=== PATIENT | male | born 1955 | race Caucasian/White ===

== ENCOUNTER 2018-08-11 15:01 | Inpatient (IN) | payer OTHER ==
[~2018-08-11] VITALS: Ht 170.2 cm; Wt 79.4 kg
[2018-08-11 15:10] VITALS: BP 120/62
--- NOTE | 2018-08-11 15:19 | NUR ---
PT TO ER BED 4
--- NOTE | 2018-08-11 15:23 | NUR ---
63 M PT BIB C/O THORACIC BACK PAIN AND FOOT SORE. BACK PAIN ACHING 12/28, DENIES INJURY OR TRAUMA, SINCE SUNDAY. 2 AND HALF BY 3 CM SORE ON BOTTOM OF THE FOOT. PT REPORTS HE SAW A DR 3 WEEKS AGO FOR THE FOOT SORE AND WAS PRESCRIBED COLLAGENASE SANTYL. L FOOT IS RED, SWOLLEN, NO ECCYMOSIS. +PEDAL PULSES, +ROM. ADMITS FEVERS/CHILLS AND VOMITING SINCE YESTERDAY. BED IS DOWN, LOCKED, BED RAIL X 1, ERMD NOTIFIED. [facility]-DIABETES MEDS- CANT REMEMBER THE NAME BUT STATES THEY ARE FOR DIABETES
--- NOTE | 2018-08-11 16:11 | NUR ---
DR VILLEDA AT BEDSIDE
[2018-08-11] MEDS ORDERED: VANCOMYCIN 1,000 MG in DEXTROSE 5% 250 ML IV ONE (16:15)
[2018-08-11] MEDS ORDERED: NACL 0.9% 1,000 ML IV ONE (16:15)
--- NOTE | 2018-08-11 16:16 | NUR ---
CULTURE SWAB PLACED AT BEDSIDE FOR DR VILLEDA
--- NOTE | 2018-08-11 16:25 | NUR ---
XRAY AT BEDSIDE
[2018-08-11] MEDS ORDERED: VANCOMYCIN 1,000 MG VIAL ONE (16:36)
[2018-08-11 17:15] LABS: BASOPHILS % (AUTO) 0.1 % (0.0-2.0); EOSINOPHILS % (AUTO) 0.2 % (0.0-4.0); HEMATOCRIT 33.2 % (36-52); LYMPHOCYTES # (AUTO) 0.6 K/uL (2.0-11.5); LYMPHOCYTES % (AUTO) 3.1 % (20.5-51.1); MEAN CORPUSCULAR HEMOGLOBIN 30 pg (27-31); MEAN CORPUSCULAR HGB CONC 33 g/dL (33-37); MEAN CORPUSCULAR VOLUME 90.9 fL (80-94); MONOCYTES # (AUTO) 1.4 K/uL (0.8-1.0); MONOCYTES % (AUTO) 7.8 % (1.7-9.3); NEUTROPHILS # (AUTO) 16.1 K/uL (1.8-7.7); NEUTROPHILS % (AUTO) 88.8 % (42.2-75.2); PLATELET COUNT (AUTO) 238 K/uL (140-450); RED BLOOD CELL COUNT(AUTO) 3.65 MIL/uL (4.20-6.10); RED CELL DISTRIBUTION WIDTH 14.3 % (11.6-13.7); WHITE BLOOD COUNT (AUTO) 18.2 K/uL (4.8-10.8)
[2018-08-11 17:22] LABS: APPEARANCE,URINE CLEAR (CLEAR); BILIRUBIN,URINE NEGATIVE (NEGATIVE); BLOOD, URINE NEGATIVE (NEGATIVE); COLOR,URINE YELLOW (YELLOW); LEUKOCYTE ESTERASE ,URINE NEGATIVE (NEGATIVE); NITRITE, URINE NEGATIVE (NEGATIVE); PH,URINE 6.5 (5.0-9.0); UGLUCOSE NEGATIVE (NEGATIVE)
[2018-08-11 17:26] LABS: PROTHROMBIN TIME 10.7 secs (10.8-13.4)
[2018-08-11 17:28] LABS: ALBUMIN 3.1 g/dL (3.4-5.0); ANION GAP 16.5 (8-16); CARBON DIOXIDE 23.2 mmol/L (21-32); CREATININE 1.1 mg/dL (0.7-1.3); POTASSIUM 4.7 mmol/L (3.5-5.1); TOTAL BILIRUBIN 0.7 mg/dL (0.0-1.0)
--- NOTE | 2018-08-11 17:35 | NUR ---
PT SLEEPING IN BED
[2018-08-11] MEDS ORDERED: NACL 0.9% 1,000 ML IV SCH (18:36)
[2018-08-11] MEDS ORDERED: ONDANSETRON 4 MG/2 ML VIAL IM/IVP PRN (18:40)
[2018-08-11] MEDS ORDERED: MORPHINE SULFATE 2 MG/ML SYR IVP PRN (18:40)
[2018-08-11] MEDS ORDERED: FURO-572 PO (18:52)
[2018-08-11] MEDS ORDERED: GABA300C PO (18:52)
[2018-08-11] MEDS ORDERED: RANI300S3 PO (18:52)
[2018-08-11] MEDS ORDERED: VANCOMYCIN PER PHARMACY MC PRN (19:05)
--- NOTE | 2018-08-11 19:18 | NUR ---
Patient will be admitted to care of [facility]. Admited to [facility]. Will go to room 112B. Belongings list completed. Report to ERINN CULVER.
--- NOTE | 2018-08-11 19:20 | NUR ---
ADMITTED THIS 63 YEAR OLD MALE FROM ER PER WHEELCHAIR WITH CC OF LEFT FOOT DIABETIC ULCER, AMBULATED TO BED WITH STEADY GAIT, MODERATE PAIN ON LEFT FOOT WITH WEIGHT BEARING BUT TOLERABLE PAIN WHEN AT REST, ASSESSMENT DONE, VITAL SIGNS TAKEN, TEMP-101.9, BP SLIGHTLY ELEVATED, DENIES CHEST PAIN, COOLING MEASURES STARTED, ORIENTED TO ROOM AND CALL LIGHT, LEFT FOOT CLEANSED WITH NS AND COVERED WITH COMPOSITE DRESSING, PLAN OF CARE DISCUSSED WITH PT AND , SAFETY MEASURES IN PLACE, CALL LIGHT WITHIN REACH.
[2018-08-11 19:30] VITALS: BP 156/64
[2018-08-11 19:39] LABS: BARBITURATE, URINE NEG. ng/ml (NEG <=200); BENZODIAZEPINE, URINE NEG. ng/mL (NEG <=200); CANNABINOID, URINE NEG. ng/mL (NEG <=50); COCAINE, URINE NEG. ng/mL (NEG <=300); OPIATE, URINE NEG. ng/mL (NEG <=2000); PHENCYCLIDINE SCREEN,URINE NEG. ng/mL (NEG <=25)
[2018-08-11 19:47] LABS: CHOL/HDL RATIO 2.2 (1-4.5); PHOSPHORUS 2.7 mg/dL (2.5-4.9); THYROID STIMULATING HORMONE 0.82 uIU/mL (0.34-3.74)
[2018-08-11] MEDS: ACETAMINOPHEN 325 MG TAB PO PRN (20:00)
[2018-08-11] MEDS: DEXT 5% / NACL 0.45% 1,000 ML IV SCH (20:00)
[2018-08-11] MEDS: BLOOD GLUCOSE MONITORING 1 DEV DEV FS SCH (20:01)
[2018-08-11] MEDS ORDERED: ATOR10TA PO (20:03)
[2018-08-11] MEDS ORDERED: ACT30 PO (20:03)
[2018-08-11] MEDS ORDERED: OMEP20TC12 PO (20:03)
[2018-08-11] MEDS ORDERED: INSU100S22 SUBQ (20:03)
[2018-08-11] MEDS ORDERED: LISI-420 PO (20:03)
--- NOTE | 2018-08-11 20:30 | NUR ---
CIGAR BINDER DR BARAJAS AT BEDSIDE EXAMINING THE PT, SX CONSENT OBTAINED FOR I&D WITH EXCISIONAL DEBRIDEMENT OF LEFT FOOT WOUND TOMORROW MORNING, INSTRUCTED PT NPO EXCEPT MEDS, VERBALIZED UNDERSTANDING, IVF OF D5 1/2 NS AT 120ML INFUSING WELL, ALL NEEDS ATTENDED.
[2018-08-11] MEDS ORDERED: PIPERACILLIN/TAZOBACTAM 3.375 GM VIAL IV ONE (20:39)
[2018-08-11] MEDS: ATORVASTATIN 20 MG TAB PO SCH (20:50)
[2018-08-11] MEDS: PIPER/TAZO 3.375GM/D5W PREMIX 50 ML IV SCH (20:50)
[2018-08-11] MEDS: INSULIN LISPRO SLIDING SCALE 100 UNITS/ML VIAL SUBQ PRN (20:57)
--- NOTE | 2018-08-11 23:55 | NUR ---
PT SLEEPING, OPEN EYES TO NAME, VITAL SIGNS STABLE, TEMP-99.3, DENIES ANY PAIN, IVF INFUSING WELL, MAINTAINED ON NPO EXCEPT MEDS, CONTINUE TO MONITOR CLOSELY.
[2018-08-12] VITALS: BP 121/58
--- NOTE | 2018-08-12 01:32 | NUR ---
PT VOIDED FREELY VIA URINAL WITH 450ML YELLOW URINE, DENIES PAIN, MONITORED CLOSELY.
[2018-08-12] MEDS: PIPER/TAZO 3.375GM/D5W PREMIX 50 ML IV SCH ×3 (04:35→20:54)
[2018-08-12] MEDS: DEXT 5% / NACL 0.45% 1,000 ML IV SCH (04:35)
[2018-08-12] MEDS ORDERED: PIPERACILLIN/TAZOBACTAM 3.375 GM VIAL IV ONE (04:36)
--- NOTE | 2018-08-12 04:40 | NUR ---
DUE ZOSYN IVPB ADMINISTERED, PT SLEEPING, NO SIGNS OF DISTRESS, MONITORED CLOSELY.
[2018-08-12] MEDS: ACETAMINOPHEN 325 MG TAB PO PRN (05:36)
--- NOTE | 2018-08-12 05:37 | NUR ---
ORAL TEMP OF 101.0, TYLENOL GIVEN WITH SIP OF WATER, COOLING MEASURES DONE, MONITORED CLOSELY.
[2018-08-12] MEDS: INSULIN LISPRO SLIDING SCALE 100 UNITS/ML VIAL SUBQ PRN ×4 (05:48→21:00)
[2018-08-12 06:40] VITALS: BP 123/56
--- NOTE | 2018-08-12 06:40 | NUR ---
ORAL TEMP RECHECKED-100.0, GOWN CHANGED, VOIDED FREELY PER URINAL, VITAL SIGNS:BP-123/56, HR-89, R-20, SAT-98% ON ROOM AIR, DENIES PAIN, IVF INFUSING WELL, AT BEDSIDE.
--- NOTE | 2018-08-12 07:05 | NUR ---
CASINO RUNNER CHIEF ORDER DISPATCHER PT VIA BED FOR SURGERY, PT IN STABLE CONDITION.
[2018-08-12] MEDS ORDERED: KETOROLAC 30 MG/ML VIAL ONE (07:20)
[2018-08-12] MEDS ORDERED: DEXAMETHASONE 4 MG/ML VIAL ONE (07:20)
[2018-08-12] MEDS ORDERED: ONDANSETRON 4 MG/2 ML VIAL ONE (07:20)
[2018-08-12] MEDS ORDERED: PROPOFOL 200 MG/20 ML VIAL IV ONE (07:20)
[2018-08-12] MEDS ORDERED: DEXT 5% /NACL 0.9% 1,000 ML IV SCH (07:20)
[2018-08-12] MEDS ORDERED: SEVOFLURANE 250 ML BTL INH ONE (07:20)
--- NOTE | 2018-08-12 07:23 | NUR ---
PT OUT OF UNIT AT THIS TIME, REPORT GIVEN TO PALOMO RMOERO FOR CONTINUITY OF CARE.
--- NOTE | 2018-08-12 07:25 | NUR ---
RECEIVED PT REPORT FROM JERKER RNERINN. PT IS CURRENTLY IN OR.
[2018-08-12] MEDS ORDERED: MIDAZOLAM 2 MG/2 ML VIAL ONE (07:29)
[2018-08-12] MEDS ORDERED: fentaNYL 0.05 MG/ML VIAL ONE (07:29)
[2018-08-12] MEDS: BLOOD GLUCOSE MONITORING 1 DEV DEV FS SCH ×4 (07:31→20:53)
[2018-08-12] MEDS ORDERED: BUPIVACAINE-MPF 0.25% 30 ML VIAL INJ ONE (07:32)
[2018-08-12] MEDS ORDERED: LIDOCAINE 2% 1000 MG/50 ML VIAL INJ ONE (07:32)
[2018-08-12 07:35] LABS: BASOPHILS % (AUTO) 0.1 % (0.0-2.0); HEMATOCRIT 29.4 % (36-52); HEMOGLOBIN 9.8 g/dL (12.0-18.0); LYMPHOCYTES # (AUTO) 0.6 K/uL (2.0-11.5); LYMPHOCYTES % (AUTO) 3.4 % (20.5-51.1); MEAN CORPUSCULAR HEMOGLOBIN 30 pg (27-31); MEAN CORPUSCULAR HGB CONC 33 g/dL (33-37); MEAN CORPUSCULAR VOLUME 90.5 fL (80-94); MONOCYTES # (AUTO) 1.4 K/uL (0.8-1.0); MONOCYTES % (AUTO) 8.3 % (1.7-9.3); NEUTROPHILS # (AUTO) 15.2 K/uL (1.8-7.7); NEUTROPHILS % (AUTO) 88.2 % (42.2-75.2); PLATELET COUNT (AUTO) 233 K/uL (140-450); RED BLOOD CELL COUNT(AUTO) 3.25 MIL/uL (4.20-6.10); RED CELL DISTRIBUTION WIDTH 14.1 % (11.6-13.7)
[2018-08-12 07:56] LABS: ANION GAP 13.8 (8-16); CARBON DIOXIDE 24.4 mmol/L (21-32); POTASSIUM 4.2 mmol/L (3.5-5.1)
[2018-08-12] MEDS ORDERED: VANCOMYCIN 1GM/DEXT 5% PREMIX 200 ML IV SCH (08:00)
[2018-08-12] MEDS ORDERED: NACL 0.9% 1,000 ML IV SCH (08:04)
[2018-08-12] MEDS ORDERED: diphenhydrAMINE 50 MG/ML VIAL IVP PRN (08:05)
[2018-08-12] MEDS ORDERED: MEPERIDINE 25 MG/ML SYR IVP PRN (08:05)
[2018-08-12] MEDS ORDERED: HYDROmorphone 1 MG/ML AMP IVP PRN (08:05)
[2018-08-12] MEDS ORDERED: ONDANSETRON 4 MG/2 ML VIAL IVP PRN (08:05)
[2018-08-12] MEDS ORDERED: BLOOD GLUCOSE MONITORING 1 DEV DEV FS ONE (08:05)
[2018-08-12 08:09] LABS: MAGNESIUM 1.7 mg/dL (1.8-2.4)
[2018-08-12 08:17] LABS: WHITE BLOOD COUNT (AUTO) 17.2 K/uL (4.8-10.8)
--- NOTE | 2018-08-12 08:27 | NUR ---
PATIENT HAS BEEN SCREENED AND CATEGORIZED HIGH NUTRITION RISK. PATIENT WILL BE SEEN WITHIN 1-2 DAYS OF ADMISSION. 08/12/18-08/13/[address]
[2018-08-12 08:45] LABS: PHOSPHORUS 2.9 mg/dL (2.5-4.9)
--- NOTE | 2018-08-12 08:57 | NUR ---
WOUND CONSULT NOT DONE, PT. OUT OF UNIT.
[2018-08-12] MEDS ORDERED: MAGNESIUM OXIDE 400 MG TAB PO SCH (09:00)
--- NOTE | 2018-08-12 09:25 | NUR ---
RECEIVED PT FROM OR NURSE MORGAN. PT IS AAOX4, NO DISTRESS NOTED. DENIES PAIN. I&D WAS PERFORMED IN OR FOR LEFT FOOT ULCER. DRESSING IS DRY AND INTACT. ACCORDING TO OR NURSE, BLOOD SUGAR 187, SHE ALREADY NOTIFIED MD. VITAL SIGNS TAKEN, WITHIN NORMAL LIMIT. BP SLIGHTLY ELEVATED. ELEVATED LEFT FOOT WITH 2 PILLOWS. APPLIED ICE PACK TO LEFT FOOT TO PREVENT SWELLING. PT VERBALIZED UNDERSTANDING. SAFETY MEASURES IN PLACE, CALL LIGHT WITHIN REACH.
[2018-08-12] MEDS: FAMOTIDINE 20 MG TAB PO SCH (09:47)
[2018-08-12] MEDS: PANTOPRAZOLE 40 MG TABEC PO SCH (09:48)
[2018-08-12] MEDS: GABAPENTIN 300 MG CAP PO SCH ×3 (09:48→17:19)
[2018-08-12] MEDS: LISINOPRIL 20 MG TAB PO SCH (09:49)
[2018-08-12] MEDS: LACTOBACILLUS RHAMNOSUS GG 1 EACH CAP PO SCH (09:49)
[2018-08-12] MEDS: FUROSEMIDE 20 MG TAB PO SCH (09:49)
[2018-08-12] MEDS: VANCOMYCIN 1GM/DEXT 5% PREMIX 200 ML IV SCH ×2 (09:50→21:24)
--- NOTE | 2018-08-12 10:00 | NUR ---
PLACED PT ON FALL PRECAUTIONS, YELLOW GOWN AND WRIST BAND APPLIED.
--- NOTE | 2018-08-12 12:30 | NUR ---
PT EATING LUNCH, NO S/S OF ACUTE DISTRESS. BG 244, COVERED WITH 4 UNIT HUMALOG.
--- NOTE | 2018-08-12 14:51 | NUR ---
08/12/18 RD INITIAL ASSESSMENT COMPLETED PLEASE REFER TO NUTRITION ASSESSMENT UNDER CARE ACTIVITY FOR ESTIMATED NUTRITIONAL NEEDS. 1. CONTINUE CCHO 60 GM DIET TOLERATED 2. RECOMMEND LITO BID FOR WOUND HEALING 3. RD PROVIDED NUTRITION EDUCATION ON DIABETES. PT AND FAMILY ACCEPTED 4. RD TO FOLLOW-UP 3-5 DAYS, MODERATE RISK MARILEE ALATORRE RD
[2018-08-12 16:00] VITALS: BP 145/67
[2018-08-12] MEDS: NACL 0.45% 1,000 ML IV SCH (17:21)
--- NOTE | 2018-08-12 19:20 | NUR ---
ENDORSED PT TO BULK PLANT SUPERVISOR RN. PT IN STABLE CONDITION
--- NOTE | 2018-08-12 19:30 | NUR ---
RECEIVED BEDSIDE REPORT FROM PALOMO ROMERO, PATIENT IN BED, ON RA, FALL RISK PRECAUTIONS IN PLACE, BG 290 WILL GIVE INSULIN ACCORDING TO MD ORDER, NOTED LEFT WOUND S/P I&D DRESSING CLEAN AND INTACT. EXPLAINED PLAN OF CARE WILL CONTINUE TO MONITOR.
[2018-08-12] MEDS: ATORVASTATIN 20 MG TAB PO SCH (20:54)
--- NOTE | 2018-08-12 20:54 | NUR ---
DUE MEDICATIONS GIVEN GAVE 6 UNITS FOR BG 290. WILL CONTINUE TO MONITOR.
--- NOTE | 2018-08-12 22:00 | NUR ---
VANCO INFUSING AT 165 ML/HR
[2018-08-13] VITALS: BP 131/59
--- NOTE | 2018-08-13 00:20 | NUR ---
V/S TAKEN, DENIES PAIN, BED ALARM ON WILL CONTINUE TO MONITOR.
--- NOTE | 2018-08-13 03:59 | NUR ---
PATIENT AMBULATED TO RESTROOM, NEEDS ONE PERSON ASSIST, NO BM.
[2018-08-13] MEDS: NACL 0.45% 1,000 ML IV SCH ×3 (05:30→21:36)
[2018-08-13] MEDS: PIPER/TAZO 3.375GM/D5W PREMIX 50 ML IV SCH ×3 (05:36→20:33)
[2018-08-13] MEDS: INSULIN LISPRO SLIDING SCALE 100 UNITS/ML VIAL SUBQ PRN ×4 (05:42→20:47)
[2018-08-13] MEDS: BLOOD GLUCOSE MONITORING 1 DEV DEV FS SCH ×4 (05:43→20:33)
[2018-08-13 07:15] LABS: BASOPHILS % (AUTO) 0.2 % (0.0-2.0); EOSINOPHILS # (AUTO) 0.1 K/uL (0-0.4); EOSINOPHILS % (AUTO) 0.4 % (0.0-4.0); HEMATOCRIT 30.7 % (36-52); HEMOGLOBIN 10.1 g/dL (12.0-18.0); LYMPHOCYTES # (AUTO) 0.8 K/uL (2.0-11.5); LYMPHOCYTES % (AUTO) 4.8 % (20.5-51.1); MEAN CORPUSCULAR HEMOGLOBIN 30 pg (27-31); MEAN CORPUSCULAR HGB CONC 33 g/dL (33-37); MEAN CORPUSCULAR VOLUME 90.2 fL (80-94); MONOCYTES # (AUTO) 0.9 K/uL (0.8-1.0); MONOCYTES % (AUTO) 5.7 % (1.7-9.3); NEUTROPHILS # (AUTO) 14.7 K/uL (1.8-7.7); NEUTROPHILS % (AUTO) 88.9 % (42.2-75.2); PLATELET COUNT (AUTO) 260 K/uL (140-450); WHITE BLOOD COUNT (AUTO) 16.6 K/uL (4.8-10.8)
[2018-08-13 07:18] LABS: ANION GAP 11.7 (8-16); CARBON DIOXIDE 25.7 mmol/L (21-32); POTASSIUM 4.4 mmol/L (3.5-5.1)
[2018-08-13 07:20] LABS: MAGNESIUM 1.8 mg/dL (1.8-2.4); PHOSPHORUS 2.4 mg/dL (2.5-4.9)
--- NOTE | 2018-08-13 07:31 | NUR ---
ENDORSED PATIENT TO DAY SHIFT NURSE
--- NOTE | 2018-08-13 07:35 | NUR ---
RECEIVED BEDSIDE REPORT FROM RN BARBIE, PATIENT AAO*4, BREATHING EVENLY AND UNLABORED ON ROOM AIR, FALL RISK PRECAUTIONS IN PLACE. IV CATH TO LEFT HAND, 22G, PATENT AND INTACT, ASYMPTOMATIC. NOTED LEFT FOOT WOUND S/P I&D DRESSING CLEAN AND INTACT. PT'S LEG ELEVATED ON 2 PILLOWS. PT DENIES PAIN OR ANY DISCOMFORT. EXPLAINED PLAN OF CARE. PT VERBALIZED UNDERSTANDING. WILL CONTINUE TO MONITOR.
[2018-08-13 08:00] VITALS: BP 149/77
--- NOTE | 2018-08-13 08:40 | NUR ---
DR. BARAJAS CAME AND CHANGED DRESSING ON LEFT FOOT. WOUND PICTURE WAS TAKEN WITH MEASUREMENT. PT TOLERATED WELL AND DENIED PAIN.
[2018-08-13] MEDS: LACTOBACILLUS RHAMNOSUS GG 1 EACH CAP PO SCH (09:00)
[2018-08-13] MEDS: metFORMIN 500 MG TAB PO SCH ×2 (09:00→16:15)
[2018-08-13] MEDS: LISINOPRIL 20 MG TAB PO SCH (09:00)
[2018-08-13] MEDS: GABAPENTIN 300 MG CAP PO SCH ×3 (09:01→16:15)
[2018-08-13] MEDS: PANTOPRAZOLE 40 MG TABEC PO SCH (09:01)
[2018-08-13] MEDS: FAMOTIDINE 20 MG TAB PO SCH (09:01)
[2018-08-13] MEDS: FUROSEMIDE 20 MG TAB PO SCH (09:02)
[2018-08-13] MEDS ORDERED: metFORMIN 500 MG TAB PO SCH (09:25)
[2018-08-13] MEDS ORDERED: VANCOMYCIN HCL 1,250 MG in DEXTROSE 5% 250 ML IV SCH (10:00)
[2018-08-13] MEDS ORDERED: SODIUM PHOS / POTASSIUM PHOS 1 PKT PDR PO SCH (10:00)
[2018-08-13] MEDS: VANCOMYCIN HCL 1,250 MG in NACL 0.9% 250 ML IV SCH ×2 (11:10→21:39)
--- NOTE | 2018-08-13 11:35 | NUR ---
RN PROVIDED POST-OP SHOES AND FIT TO PT'S LEFT FOOT. EDUCATED PT HOW TO WEAR AND TAKE OFF. PLACE CALL LIGHT WITHIN REACH AND ENCOURAGE TO USE IT WHEN GETTING OUT OF BED.
[2018-08-13] MEDS: HYDROcodone/APAP 5/325 MG 1 TAB TAB PO PRN (16:15)
--- NOTE | 2018-08-13 16:15 | NUR ---
PT HAS ORAL TEMP 99.6 F. APPLY ICE PACK ON PT'S BACK SIDE OF NECK. WILL CONTINUE TO MONITOR.
[2018-08-13 16:28] VITALS: BP 157/78
--- NOTE | 2018-08-13 17:45 | NUR ---
NOTICED PT'S LEFT BIG TOE IS SLIGHT PURPLE, RELEASED ZAC BANDAGE DRESSING.
--- NOTE | 2018-08-13 18:35 | NUR ---
INFORMED DR BALLARD THAT PT'S LEFT BIG TOE WAS SLIGHT PURPLE, BUT PT IS ABLE TO WIGGLE AND ABLE TO FEEL THE TOUGH. CAP REFILL IS LESS THAN 3 SEC. DRESSING WAS RELEASED, NOW THE BIG TOE IS RED, COLOR BECOMES BETTER. Addendum: 08/13/18 at 1940 by Stuart Churchill RN PER DR KARL SIU TO LOOSEN THE KERLIX DRESSING..
--- NOTE | 2018-08-13 19:15 | NUR ---
ENDORSED WITH PT TO FRINGE WEAVER RN SUMMER. PT IN STABLE CONDITION.
--- NOTE | 2018-08-13 19:30 | NUR ---
RECEIVED BEDSIDE REPORT FROM PALOMO ROMERO, PATIENT IN BED FAMILY AT BEDSIDE, QUESTIONS ANSWERED IV IN LEFT HAND 22 INFUSING 1/2 NS AT 100. NOTED LEFT TOE ULCER S/P I&D, DRESSING CLEAN, ELEVATED ON PILLOWS, PATIENT REQUESTED BANDAGES BE LOOSED BECAUSE IT FEELS TOO TIGHT. ASKED IT PATIENT WANTED ICE PATIENT STATED "NO". BG 217 WILL MEDICATED ACCORDING TO SLIDING SCALE.
[2018-08-13] MEDS: ATORVASTATIN 20 MG TAB PO SCH (20:33)
--- NOTE | 2018-08-13 20:33 | NUR ---
DUE MEDICATIONS GIVEN, DR HARTLEY AT BEDSIDE ANSWERING QUESTIONS TO PATIENT AND FAMILY. FAMILY REQUESTED TIME OFF FOR WORK.
[2018-08-13] MEDS: INSULIN LANTUS 100 UNITS/ML 10 ML VIAL SUBQ SCH (20:40)
--- NOTE | 2018-08-13 21:43 | NUR ---
DUE VANCO GIVEN
[2018-08-13 23:38] VITALS: BP 111/77
--- NOTE | 2018-08-13 23:42 | NUR ---
V/S TAKEN, NO SIGNS OF DISTRESS, WILL CONTINUE TO MONITOR
--- NOTE | 2018-08-14 01:15 | NUR ---
PATIENT SLEEPING IN BED, NO SIGNS OF DISTRESS, BED ALARM ON.
--- NOTE | 2018-08-14 02:56 | NUR ---
PATIENT SLEEPING IN BED, BED ALARM ON, WILL CONTINUE TO MONITOR
[2018-08-14] MEDS: PIPER/TAZO 3.375GM/D5W PREMIX 50 ML IV SCH ×3 (04:08→20:43)
[2018-08-14] MEDS: HYDROcodone/APAP 5/325 MG 1 TAB TAB PO PRN (04:08)
--- NOTE | 2018-08-14 04:09 | NUR ---
PATIENT C/O PAIN GAVE NORCO
--- NOTE | 2018-08-14 04:30 | NUR ---
SPOKE WITH DR VASQUEZ REGARDING TIME OFF FROM WORK NOTE, DR VASQUEZ STATED THEY WILL TAKE CARE OF IT AT D/C.
[2018-08-14] MEDS: INSULIN LISPRO SLIDING SCALE 100 UNITS/ML VIAL SUBQ PRN ×3 (06:02→17:29)
[2018-08-14] MEDS: BLOOD GLUCOSE MONITORING 1 DEV DEV FS SCH ×4 (06:08→20:28)
--- NOTE | 2018-08-14 06:14 | NUR ---
MEDICATED WITH 2 UNITS FOR BG 169
--- NOTE | 2018-08-14 07:05 | NUR ---
RECEIVED BEDSIDE REPORT FROM CUSTOM DECORATING CONSULTANT RN. PATIENT AAOX4, BREATHING EVENLY AND UNLABORED ON ROOM AIR, FALL RISK PRECAUTIONS IN PLACE. IV CATH TO LEFT HAND, 22G, PATENT AND INTACT, ASYMPTOMATIC. LEFT FOOT ULCER, S/P I&D DRESSING CLEAN AND INTACT. PT'S LEG ELEVATED ON 2 PILLOWS. PT DENIES PAIN OR ANY DISCOMFORT. EXPLAINED PLAN OF CARE. PT VERBALIZED UNDERSTANDING. WILL CONTINUE TO MONITOR.
--- NOTE | 2018-08-14 07:18 | NUR ---
ENDORSED PATIENT TO DAY SHIFT NURSE, PATIENT STABLE.
[2018-08-14 08:00] VITALS: BP 158/77
--- NOTE | 2018-08-14 08:54 | NUR ---
WOUND CONSULT NOT DONE. PER DR. BARAJAS, WRAPPER HAND WILL FOLLOW THE PT. WHILE IN HOUSE.
[2018-08-14] MEDS ORDERED: SODIUM PHOS / POTASSIUM PHOS 1 PKT PDR PO SCH (09:00)
--- NOTE | 2018-08-14 09:05 | NUR ---
PT'S LEFT BIG TOE IS SLIGHT RED, GOOD BLOOD CIRCULATION. PT IS ABLE TO MOVE HIS LEFT TOES, AND ABLE TO FEEL ON THE TOES.
[2018-08-14] MEDS: LISINOPRIL 20 MG TAB PO SCH (09:07)
[2018-08-14] MEDS: FAMOTIDINE 20 MG TAB PO SCH (09:08)
[2018-08-14] MEDS: LACTOBACILLUS RHAMNOSUS GG 1 EACH CAP PO SCH (09:08)
[2018-08-14] MEDS: FUROSEMIDE 20 MG TAB PO SCH (09:09)
[2018-08-14] MEDS: metFORMIN 500 MG TAB PO SCH ×2 (09:09→20:48)
[2018-08-14] MEDS: GABAPENTIN 300 MG CAP PO SCH ×3 (09:10→16:37)
[2018-08-14] MEDS: PANTOPRAZOLE 40 MG TABEC PO SCH (09:10)
--- NOTE | 2018-08-14 10:04 | NUR ---
CALLED LAB, REMINDED THEM TO DRAW CBC BMP AND VANCO TROUGH.
[2018-08-14 10:26] LABS: HEMATOCRIT 31.9 % (36-52); HEMOGLOBIN 10.6 g/dL (12.0-18.0); MEAN CORPUSCULAR HEMOGLOBIN 30 pg (27-31); MEAN CORPUSCULAR HGB CONC 33 g/dL (33-37); MEAN CORPUSCULAR VOLUME 89.6 fL (80-94); PLATELET COUNT (AUTO) 314 K/uL (140-450); RED BLOOD CELL COUNT(AUTO) 3.56 MIL/uL (4.20-6.10); RED CELL DISTRIBUTION WIDTH 13.6 % (11.6-13.7)
[2018-08-14] MEDS: NACL 0.45% 1,000 ML IV SCH ×2 (10:55→18:30)
--- NOTE | 2018-08-14 11:00 | NUR ---
INCISIONS PIC TAKEN. NO DRAINAGE NOTED. Addendum: 08/14/18 at 1511 by Stuart Churchill RN PLEASE DISCARD, WRONG PT.
[2018-08-14 11:09] LABS: BASOPHILS % (MANUAL) 4 % (0-2); EOSINOPHILS % (MANUAL) 3 % (0-4); LYMPHOCYTES % (MANUAL) 11 % (20-46); MONOCYTES % (MANUAL) 10 % (5-12)
[2018-08-14 12:15] LABS: MAGNESIUM 1.4 mg/dL (1.8-2.4); PHOSPHORUS 3.6 mg/dL (2.5-4.9)
[2018-08-14 12:37] LABS: ANION GAP 15.3 (8-16); CARBON DIOXIDE 26.8 mmol/L (21-32); POTASSIUM 4.1 mmol/L (3.5-5.1)
[2018-08-14] MEDS ORDERED: VANCOMYCIN 1GM/DEXT 5% PREMIX 200 ML IV SCH (13:00)
--- NOTE | 2018-08-14 13:18 | NUR ---
Clinical[place] [facility] [place] for [place] antibiotics and wound care.
--- NOTE | 2018-08-14 13:38 | NUR ---
DR BALLARD CHANGED DRESSING ON THE LEFT FOOT.
--- NOTE | 2018-08-14 14:26 | NUR ---
Faxed to [facility] and [facility] for eval for IV antibiotics and wound care.
--- NOTE | 2018-08-14 14:46 | NUR ---
Clinicals faxed to [facility] and [facility] for IV antibiotics and wound care.
[2018-08-14] MEDS ORDERED: MAG SULF 2000 MG/WATER PREMIX 50 ML IV SCH (15:00)
--- NOTE | 2018-08-14 15:38 | NUR ---
CLinicals faxed to [facility] for IV antibiotics and wound care.
[2018-08-14 16:00] VITALS: BP 145/69
[2018-08-14] MEDS: ACETAMINOPHEN 325 MG TAB PO PRN (16:03)
--- NOTE | 2018-08-14 16:05 | NUR ---
PT'S ORAL BT 100.8 F NOTED. ADMINISTERED TYLENOL 325MG 2TABLETS PRN ORDERED AND APPLIED ICE PACK ON BACK SIDE OF NECK. WILL CONTINUE MONITOR.
--- NOTE | 2018-08-14 17:00 | NUR ---
REASSESSED PT FOR TEMPERATURE. BT 99.4 F NOTED. ENCOURAGED PT TO DRINK FLUID TOLERATED.
[2018-08-14] MEDS: DOCUSATE SODIUM 100 MG GELCAP PO PRN (18:34)
--- NOTE | 2018-08-14 19:30 | NUR ---
ENDORSED PT TO WATER POLLUTION SCIENTIST NURSE FOR CONTINUITY OF CARE, PT IS STABLE AT THIS TIME WITH FAMILY ON THE BEDSIDE.
--- NOTE | 2018-08-14 19:32 | NUR ---
RECEIVED BEDSIDE REPORT FROM AM SHIFT NURSE. PATIENT AAOX4, NO SOB, NO COMPLAINTS OF PAIN OR DISCOMFORT AT THIS TIME. IVF INFUSING ON LEFT HAND, 22G, PATENT AND INTACT. LEFT FOOT ULCER, S/P I&D DRESSING CLEAN AND INTACT. PT'S LEG ELEVATED ON 2 PILLOWS.FALL RISK PRECAUTIONS IN PLACE . POC REVIEWED. PT VERBALIZED UNDERSTANDING. WILL CONTINUE TO MONITOR.
[2018-08-14] MEDS: ATORVASTATIN 20 MG TAB PO SCH (20:44)
[2018-08-14] MEDS: INSULIN LANTUS 100 UNITS/ML 10 ML VIAL SUBQ SCH (20:46)
--- NOTE | 2018-08-14 21:00 | NUR ---
PT TOLERATE MEDS WELL, WILL CONTINUE TO MONITOR
[2018-08-15] VITALS: BP 121/60
--- NOTE | 2018-08-15 | NUR ---
PT SLEEPING, NO COMPLAINTS AT THIS TIME. NO SOB
--- NOTE | 2018-08-15 03:00 | NUR ---
WENT TO BATHROOM X 1 ASSISTED. VOIDED DARK YELLOW URINE.
[2018-08-15] MEDS: HYDROcodone/APAP 5/325 MG 1 TAB TAB PO PRN ×3 (03:48→19:37)
--- NOTE | 2018-08-15 03:49 | NUR ---
PT C.O OF BACK PAIN ADMINISTERED NORCO ORDERED.
[2018-08-15] MEDS: NACL 0.45% 1,000 ML IV SCH ×3 (04:30→23:16)
[2018-08-15] MEDS: BLOOD GLUCOSE MONITORING 1 DEV DEV FS SCH ×4 (06:02→20:45)
[2018-08-15] MEDS: PIPER/TAZO 3.375GM/D5W PREMIX 50 ML IV SCH ×3 (06:03→20:31)
[2018-08-15] MEDS: INSULIN LISPRO SLIDING SCALE 100 UNITS/ML VIAL SUBQ PRN ×4 (06:06→20:37)
[2018-08-15 07:18] LABS: BASOPHILS % (AUTO) 0.2 % (0.0-2.0); EOSINOPHILS # (AUTO) 0.3 K/uL (0-0.4); EOSINOPHILS % (AUTO) 1.8 % (0.0-4.0); HEMATOCRIT 32.8 % (36-52); HEMOGLOBIN 10.9 g/dL (12.0-18.0); LYMPHOCYTES # (AUTO) 1.1 K/uL (2.0-11.5); LYMPHOCYTES % (AUTO) 7.5 % (20.5-51.1); MEAN CORPUSCULAR HEMOGLOBIN 30 pg (27-31); MEAN CORPUSCULAR HGB CONC 33 g/dL (33-37); MEAN CORPUSCULAR VOLUME 90.2 fL (80-94); MONOCYTES # (AUTO) 1.6 K/uL (0.8-1.0); MONOCYTES % (AUTO) 10.7 % (1.7-9.3); NEUTROPHILS # (AUTO) 12.2 K/uL (1.8-7.7); NEUTROPHILS % (AUTO) 79.8 % (42.2-75.2); PLATELET COUNT (AUTO) 329 K/uL (140-450); RED BLOOD CELL COUNT(AUTO) 3.64 MIL/uL (4.20-6.10); RED CELL DISTRIBUTION WIDTH 14.1 % (11.6-13.7); WHITE BLOOD COUNT (AUTO) 15.3 K/uL (4.8-10.8)
--- NOTE | 2018-08-15 07:20 | NUR ---
ENDORSED BEDSIDE REPORT TO AM SHIFT NURSE SITAL FOR CONTINUITY OF CARE. NO COMPLAINTS AT THIS TIME, NO SOB NOTED.
--- NOTE | 2018-08-15 07:21 | NUR ---
RECEIVED REPORT FROM PM NURSE AT [facility]. PT SITTING ON HIS BED. AOX4, NO SIGN OF DISTRESS NOTED. PT HAS THE UNHEALING ULCER IN HIS LEFT FOOT. WOUND CARE DONE BY THE DRYING TUMBLER OPERATOR. HAS URINAL AT THE BEDSIDE. PT IVF INFUSING WELL. HAS IV ACCESS ON HIS LFT WRIST. BED ALARM ON. INFORMED HIM TI FERN CALL LIGHT FOR ANY HELP. UPDATED BOARD AND INTRODUCED SELF. WILL CONTINUE TO MONITOR PT.
[2018-08-15 07:44] LABS: ANION GAP 14.4 (8-16); CARBON DIOXIDE 27.8 mmol/L (21-32); CREATININE 1.1 mg/dL (0.7-1.3); POTASSIUM 4.2 mmol/L (3.5-5.1)
[2018-08-15 07:50] LABS: MAGNESIUM 2.1 mg/dL (1.8-2.4); PHOSPHORUS 3.7 mg/dL (2.5-4.9)
[2018-08-15 08:00] VITALS: BP 138/65
[2018-08-15] MEDS: PANTOPRAZOLE 40 MG TABEC PO SCH (09:33)
[2018-08-15] MEDS: LISINOPRIL 20 MG TAB PO SCH (09:34)
[2018-08-15] MEDS: FAMOTIDINE 20 MG TAB PO SCH (09:34)
[2018-08-15] MEDS: LACTOBACILLUS RHAMNOSUS GG 1 EACH CAP PO SCH (09:34)
[2018-08-15] MEDS: GABAPENTIN 300 MG CAP PO SCH ×3 (09:35→17:24)
[2018-08-15] MEDS: FUROSEMIDE 20 MG TAB PO SCH (09:35)
[2018-08-15] MEDS: metFORMIN 500 MG TAB PO SCH ×2 (09:35→20:30)
--- NOTE | 2018-08-15 09:40 | NUR ---
ADMINISTERED MEDS TO PT ORDERED. TOLERATED WELL. DRESSING ON THE FOOT CHANGED BY ORNAMENTAL METAL WORKER APPRENTICE IN MORNING. PT MEDICATED WITH NORCO FOR HIS PAIN. AOX4. COMMUNICATES GOOD. NO SIGN OF DISTRESS NOTED . CALL WITHIN REACH. EDUCATED ON SAFETY , ASKED TO USE CALL LIGHT FOR ANY HELP. WILL CONTINUE TO MONITOR PT.
--- NOTE | 2018-08-15 09:42 | NUR ---
Spoke with Magali from [employer] ext [phone] and informed her that I sent the request for the SNF's contracted with [facility] yesterday and will follow up with them today. Per Magali no AUTH needed for transportation. Per Magali [facility] address: [address] [place] [address] is not contracted with [facility].
--- NOTE | 2018-08-15 09:47 | NUR ---
Snow from [facility] called and informed me they don't have any beds available today.
--- NOTE | 2018-08-15 11:45 | NUR ---
CHECKED ON PT. LYING ON HIS BED AT THIS TIME. NO SIGN OF DISTRESS.CALL LIGHT WITHIN PT REACH. BLOOD SUGAR 2156. ADMINISTERED 4 UNITS OF INSULIN. WILL CONTINUE TO MONITOR PT.
--- NOTE | 2018-08-15 13:22 | NUR ---
Spoke with Magali from [facility] informing her Dr. Simons will discharge the pt today to go to a SNF once a bed is available.
--- NOTE | 2018-08-15 15:00 | NUR ---
CHECKED ON PT. SLEEPING IN HIS BED. PT FAMILY AT THE BEDSIDE. ALL SAFETY MEASURE IN PLACE. WILL CONTINUE TO MONITOR PT.
--- NOTE | 2018-08-15 15:12 | NUR ---
Spoke with Shena from [facility] and informed her pt hasn't been cleared by ID doctor. We will follow up tomorrow.
[2018-08-15 16:00] VITALS: BP 141/71
--- NOTE | 2018-08-15 19:20 | NUR ---
ENDORSED PT TO PM NURSE AT BEDSIDE. PT IN STABLE CONDITION.
--- NOTE | 2018-08-15 19:21 | NUR ---
RECEIVED REPORT FROM DAYSHIFT RN, PATIENT IN STABLE CONDITION, ALERT AND ORIENTED. FAMILY AT BEDSIDE, BED IN LOW POSITION AND CALL LIGHT WITHIN REACH.
[2018-08-15] MEDS: ATORVASTATIN 20 MG TAB PO SCH (20:30)
[2018-08-15] MEDS: INSULIN LANTUS 100 UNITS/ML 10 ML VIAL SUBQ SCH (20:36)
[2018-08-15] MEDS: DOCUSATE SODIUM 100 MG GELCAP PO PRN (20:42)
--- NOTE | 2018-08-15 22:00 | NUR ---
PATIENT SLEEPING IN BED, NO SIGNS OF DISTRESS, BED IN LOW POSITION, CALL LIGHT WITHIN REACH. WILL CONTINUE TO MONITOR.
--- NOTE | 2018-08-15 22:00 | NUR ---
BLOOD SUGAR CHECKED WITH 186 RESULT, COVERAGE GIVEN, SNACK PROVIDED, DUE MEDS ADMINISTERED, DRESSING TO LEFT FOOT DRY AND INTACT, ELEVATED WITH PILLOW, ALL NEEDS ATTENDED.
[2018-08-15 23:50] VITALS: BP 118/65
--- NOTE | 2018-08-15 23:58 | NUR ---
PATIENT SLEEPING IN BED, VITAL SIGNS STABLE, NO SIGNS OF DISTRESS ON RA, WILL CONTINUE TO MONITOR.
[2018-08-16] MEDS: PIPER/TAZO 3.375GM/D5W PREMIX 50 ML IV SCH ×3 (04:26→19:19)
--- NOTE | 2018-08-16 04:26 | NUR ---
ADMINISTERED SCHEDULED MEDICATION, PATIENT SLEEPING BUT WOKE UP. ASSISTED IN REPOSITIONING, FEET ELEVATED ON PILLOWS. WILL CONTINUE TO MONITOR.
[2018-08-16] MEDS: HYDROcodone/APAP 5/325 MG 1 TAB TAB PO PRN (04:27)
--- NOTE | 2018-08-16 06:10 | NUR ---
PATIENT SLEEPING, NO SIGNS OF DISTRESS ON RA, FEET ELEVATED ON PILLOWS, WILL CONTINUE TO MONITOR.
[2018-08-16] MEDS: BLOOD GLUCOSE MONITORING 1 DEV DEV FS SCH ×4 (06:49→21:21)
--- NOTE | 2018-08-16 07:19 | NUR ---
GAVE BEDSIDE REPORT TO DAY SHIFT RN, PATIENT IN STABLE CONDITION, NO SIGNS OF DISTRESS ON RA,
--- NOTE | 2018-08-16 07:20 | NUR ---
RECEIVED REPORT FROM PM NURSE AT BEDSIDE. PT LYING COMFORTABLY IN HIS BED . NO CHANGE IN CONDITION. IVF INFUSING WELL. ALL SAFETY MEASURE IN PLACE. DENIES ANY PAIN OR DISTRESS . WILL CONTINUE TO MONITOR PT.
[2018-08-16 07:38] LABS: BASOPHILS % (AUTO) 0.3 % (0.0-2.0); EOSINOPHILS # (AUTO) 0.4 K/uL (0-0.4); EOSINOPHILS % (AUTO) 2.7 % (0.0-4.0); HEMATOCRIT 33.4 % (36-52); HEMOGLOBIN 11.1 g/dL (12.0-18.0); LYMPHOCYTES # (AUTO) 1.1 K/uL (2.0-11.5); MEAN CORPUSCULAR HEMOGLOBIN 30 pg (27-31); MEAN CORPUSCULAR HGB CONC 33 g/dL (33-37); MEAN CORPUSCULAR VOLUME 90.2 fL (80-94); MONOCYTES # (AUTO) 1.3 K/uL (0.8-1.0); MONOCYTES % (AUTO) 9.4 % (1.7-9.3); NEUTROPHILS # (AUTO) 10.6 K/uL (1.8-7.7); NEUTROPHILS % (AUTO) 79.6 % (42.2-75.2); PLATELET COUNT (AUTO) 331 K/uL (140-450); RED BLOOD CELL COUNT(AUTO) 3.71 MIL/uL (4.20-6.10); RED CELL DISTRIBUTION WIDTH 13.7 % (11.6-13.7); WHITE BLOOD COUNT (AUTO) 13.3 K/uL (4.8-10.8)
[2018-08-16 07:45] LABS: ANION GAP 14.7 (8-16); CARBON DIOXIDE 26.6 mmol/L (21-32); CREATININE 1.1 mg/dL (0.7-1.3); POTASSIUM 4.3 mmol/L (3.5-5.1)
[2018-08-16 07:52] LABS: MAGNESIUM 1.8 mg/dL (1.8-2.4); PHOSPHORUS 3.6 mg/dL (2.5-4.9)
[2018-08-16 08:00] VITALS: BP 142/72
[2018-08-16] MEDS: metFORMIN 500 MG TAB PO SCH ×2 (09:01→21:22)
[2018-08-16] MEDS: GABAPENTIN 300 MG CAP PO SCH ×3 (09:01→17:00)
[2018-08-16] MEDS: FAMOTIDINE 20 MG TAB PO SCH (09:02)
[2018-08-16] MEDS: FUROSEMIDE 20 MG TAB PO SCH (09:02)
[2018-08-16] MEDS: PANTOPRAZOLE 40 MG TABEC PO SCH (09:02)
[2018-08-16] MEDS: LACTOBACILLUS RHAMNOSUS GG 1 EACH CAP PO SCH (09:02)
[2018-08-16] MEDS: LISINOPRIL 20 MG TAB PO SCH (09:02)
--- NOTE | 2018-08-16 09:08 | NUR ---
ADMINISTERED MEDS TO PT ORDERED. TOLERATED WELL. PT TALKING TO FAMILY MEMBER ON PHONE. NO DISTRESS NOTED. ALL SAFETY MEASURE IN PLACE. WILL CONTINUE TO MONITOR PT.
[2018-08-16] MEDS: NACL 0.45% 1,000 ML IV SCH ×2 (10:30→20:30)
--- NOTE | 2018-08-16 11:21 | NUR ---
SPOKE WITH TATIANA FROM [facility]. SHE IS WAITING FOR THE ORDER FOR THE IV MEDICATION. FAXED HER THE ORDER FOR THE ZOSYN TO HER AT [phone].
[2018-08-16] MEDS ORDERED: LACT10CA PO (11:25)
[2018-08-16] MEDS ORDERED: ZOS3.375PM IV (11:25)
[2018-08-16] MEDS ORDERED: METF500T PO ×2 (11:25)
--- NOTE | 2018-08-16 12:00 | NUR ---
7002 SPOKE WITH NAM CASTILLO AT [facility] [phone] X [phone] AND PROVIDED HER WITH VERBAL CLINICAL UPDATE THAT PATIENT WAS NOT CLEARED BY ID YESTERDAY BUT PER RESIDENT DR BARAJAS PATIENT CAN GO TO SNF TODAY WITH IV ABX AND WHEN BONE CULTURE FINAL REPORT IS RECEIVED IF NEEDED ABX CAN BE CHANGED AT SNF. PER NAM SINCE PATIENT WAS NOT CLEARED FOR DISCHARGE YESTERDAY AN ADDITIONAL DAY WILL BE AUTHORIZED. PER NAM [facility] HAS ALREADY BEEN AUTHORIZED. REQUESTS THAT IF PATIENT DOES NOT DISCHARGE FOR ANY REASON TO CALL AND INFORM HER.
[2018-08-16] MEDS: INSULIN LISPRO SLIDING SCALE 100 UNITS/ML VIAL SUBQ PRN (12:29)
--- NOTE | 2018-08-16 13:20 | NUR ---
CALLED DR BARAJAS REGARDING THE WOUND CARE PT IS BEING DISCHARGED TO SNF, WAITING FOR SS TO CONFIRM THE BED. PER DR WOODADR, SOMEONE FROM THE [employer] WILL FOLLOW UP WITH DRESSING CHANGE TODAY, STATES NOT TO OPEN THE WOUND . RESIDENT MADE AWARE, WILL FOLLOW UP WITH DENTAL AMALG[employer] PROCESSOR.
--- NOTE | 2018-08-16 14:03 | NUR ---
Hot Dip Plating Supervisor Note: I faxed inquiry to [facility].
--- NOTE | 2018-08-16 15:01 | NUR ---
Radiologic Technology Program Director Note: Sidney Molina from [facility] , according to their director of retail marketing (USHA) they have to isolate patient due to Necrotizing fasciitis at their facility and they do not have any isolation beds available at this time, Director PALOMO Mayfield made aware.
--- NOTE | 2018-08-16 15:33 | NUR ---
EARLIER, SPOKE WITH TATIANA FROM [facility]. SHE SAID SHE DIDN'T GET THE ORDER FOR THE ANTIBIOTICS. REFAXED THE ORDER. I THAN RECALLED HER AND SHE SAID SHE WOULD CALL ME BACK WITH THE ROOM, STILL NO CALL BACK FROM TATIANA, SO I CALLED NAM AT [facility]. SHE SAID SHE WOULD CALL [facility]. NAM CALLED ME BACK AND SAID THAT SHE SPOKE WITH MARY AT [facility] AND TO CALL MARY. I CALLED MARY AT [facility], ADMISSION COORDINATOR , AND SHE SAID THE PATIENT CAN GO TO ROOM 8B UNDER DR. KINCAID. WANT PATIENT AFTER 6P.M. CALL REPORT TO [phone]. I CALLED AND SET UP [facility] FOR 8P.M. I CALLED ISABELLA CULVER AND INFORMED HIM.
[2018-08-16 16:00] VITALS: BP 139/67
--- NOTE | 2018-08-16 16:20 | NUR ---
GAVE REPORT ON PT TO PALOMO GARDNER FROM [facility] [phone]. GAVE THE CALL BACK NUMBER FOR ANY QUESTION. PALOMO GARDNER ASKING TO SEND THE PM DOSE OF IV ABX WITH PT. TALKED TO CHARGE NURSE, INFORMED WILL MEDICATE THE PT BEFORE PT GETS TRANSFERRED TO THE SNF. PALOMO GARDNER AWARE. OKAY WITH IT. AT THE BEDSIDE. STATES DOES NOT WANT PT TO BE TRANSFERRED TO [facility] BECAUSE SHE DOES NOT LIKE THERE. ASKING IF PT CAN BE TRANSFERRED TO [facility], OR TO [facility]. INFORMED HER THAT WILL MAKE AWARE MD ABOUT HER CON CONCERN. PT WAITING FOR THE MD TO TALK TO THE PATIENT.
--- NOTE | 2018-08-16 18:16 | NUR ---
EXPLOSIVES DETONATOR AT THE BEDSIDE, PERFORMING THE WOUND CARE ON THE FOOT. PICTURE TAKEN. EXPLOSIVES DETONATOR TO FOLLOW UP WITH PT AT SNF AFTER DISCHARGE. PT STABLE AT THIS TIME.
--- NOTE | 2018-08-16 19:20 | NUR ---
ENDORSED PT TO PM NURSE AT BEDSIDE. PT IN STABLE CONDITION.
--- NOTE | 2018-08-16 19:22 | NUR ---
ADMINISTERED ABX TO PT. INFORMED PT THAT , ABX IS BEING ADMINISTERED BEFORE SCHEDULED TIME , PT OKAY . SNF WANTED TO SEND WITH ABX DOSE FOR PM. CHARGE NURSE AWARE. FAMILY AT BEDSIDE. PT STABLE AT THIS TIME.
[2018-08-16 20:00] VITALS: BP 141/64
[2018-08-16] MEDS: ATORVASTATIN 20 MG TAB PO SCH (21:22)
[2018-08-16] MEDS: INSULIN LANTUS 100 UNITS/ML 10 ML VIAL SUBQ SCH (21:28)
--- NOTE | 2018-08-16 23:20 | NUR ---
PATIENT PICKED UP BY [facility] TO BE DISCHARGED TO [facility]. DISCHARGE INSTRUCTIONS GIVEN. PATIENT VERBALIZED UNDERSTANDING. IV LINE KEPT IN PLACE. PATIENT LEFT WITH HIS BELONGINGS AND DISCHARGE PAPERS. PATIENT LEFT IN STABLE CONDITION
== END 2018-08-16 23:20 | DRG 853 ==
LOC: MED 15:01 → MTU 18:39
PROVIDERS: ADMIT General Practice; ATTEND General Practice
PROC: 0QBP0ZZ Excision of Left Metatarsal, Open Approach (ICD-10-PCS; 2018-08-12)
PROC: 0JBR0ZZ Excision of Left Foot Subcutaneous Tissue and Fascia, Open Approach (ICD-10-PCS; principal; 2018-08-12 07:30)
DX: A41.9 Sepsis, unspecified organism (principal); N17.0 Acute kidney failure with tubular necrosis; M72.6 Necrotizing fasciitis; E44.0 Moderate protein-calorie malnutrition; M86.9 Osteomyelitis, unspecified; L97.929 Non-pressure chronic ulcer of unspecified part of left lower leg with unspecified severity; L02.612 Cutaneous abscess of left foot; L03.116 Cellulitis of left lower limb; E11.65 Type 2 diabetes mellitus with hyperglycemia; E11.69 Type 2 diabetes mellitus with other specified complication; E78.5 Hyperlipidemia, unspecified; I10 Essential (primary) hypertension; K21.9 Gastro-esophageal reflux disease without esophagitis; M72.9 Fibroblastic disorder, unspecified; E11.319 Type 2 diabetes mellitus with unspecified diabetic retinopathy without macular edema; E11.621 Type 2 diabetes mellitus with foot ulcer; L97.529 Non-pressure chronic ulcer of other part of left foot with unspecified severity; D50.9 Iron deficiency anemia, unspecified; E11.40 Type 2 diabetes mellitus with diabetic neuropathy, unspecified; E83.42 Hypomagnesemia; B95.61 Methicillin susceptible Staphylococcus aureus infection as the cause of diseases classified elsewhere; Z68.28 Body mass index [BMI] 28.0-28.9, adult; Z98.41 Cataract extraction status, right eye
CPT/HCPCS: 36415; 71045; 73620; 73630; 80048; 80053; 80202; 80305; 81003; 82150; 82948; 83036; 83605; 83690; 83735; 83880; 84100; 84436; 84443; 84484; 85025; 85610; 85651; 85730; 87040; 87070; 87081; 87086; 87186; 88305; 88311; 93005; 93925; 93970; 96365; 96366; 97116; 97530; 99285; J1100; J1644; J1815; J1885; J2001; J2250; J2405; J2543; J2704; J3010; J3370; J3475; J3490; J7030; J7060; Q0092